=== PATIENT | male | born 1990 | race African-American/Black ===

== ENCOUNTER 2017-03-01 07:01 | Emergency (ER) | payer SELFPAY ==
[~2017-03-01] VITALS: Ht 182.9 cm; Wt 80.0 kg
[2017-03-01 07:09] VITALS: BP 135/80; PULSE 80; RESP 18; TEMP 98.9; O2SAT 97
[2017-03-01] MEDS ORDERED: SODIUM CHLORIDE 0.9% FLUSH 10 ML FLUSH IVF PRN (07:45)
[2017-03-01] MEDS ORDERED: ONDANSETRON HCL 4 MG/2 ML VIAL IVP ONE (07:45)
[2017-03-01] MEDS ORDERED: HYDROmorphone HCL PF 1 MG/ML VIAL IVS ONE (07:45)
[2017-03-01 09:00] VITALS: O2SAT 99
--- NOTE | 2017-03-01 09:10 | RADRPT ---
EXAM DATE/TIME: 03/01/2017 08:35 [facility] COMPARISON: No previous studies available for comparison. INDICATIONS : No known injury. Pain in shoulder started three weeks ago and this morning at work it got extremely w orse. MEDICAL HISTORY : Diabetes mellitus type II. SURGICAL HISTORY : None. ENCOUNTER: Initial ACUITY: 3 weeks PAIN SCORE: 10/10 LOCATION: Left Shoulder FINDINGS: Two view examination of the left shoulder demonstrates dislocation of the humerus inferiorly and ante riorly. The glenohumeral and acromioclavicular joints are maintained. Bony mineralization is normal . CONCLUSION: Anterior/inferior dislocation of the left shoulder. Robles Foss MD on March 01, 2017 at 9:08 Board Certified Radiologist. This report was verified electronically.
[2017-03-01] MEDS ORDERED: PROPOFOL 200 MG/20 ML AMP IV ONE (09:30)
[2017-03-01 09:35] VITALS: BP 155/80; PULSE 81; RESP 18; O2SAT 98
[2017-03-01 09:51] VITALS: O2SAT 100
[2017-03-01 09:56] VITALS: BP 135/78; PULSE 62; RESP 18; O2SAT 99
--- NOTE | 2017-03-01 10:18 | PD ---
HPI Chief Complaint: Pain: Acute or Chronic Time Seen by Provider: 07:39 Travel History International Travel<30 days: No Contact w/Intl Traveler<30days: No Traveled to known affect area: No History of Present Illness HPI The patient is 26. He complains of pain in the left shoulder for more than one week. The pain is constant severe. It is somewhat mitigated by maintaining the arm in a fully abducted position. 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 No complaints otherwise. PFSH Past Medical History Medical History: Denies Significant Hx Autoimmune Disease: No Cardiovascular Problems: No Diminished Hearing: No Gastrointestinal Disorders: Yes Genitourinary: No Headaches: Yes (HOSPITALIZED 1 YEAR AGO FOR TESTING) Musculoskeletal: No Neurologic: Yes Psychiatric: No Respiratory: No Immunizations Current: Yes Migraines: Yes (OFF/ON FOR 2 MONTHS) Past Surgical History Surgical History: No Previous Surgery Social History Alcohol Use: No Tobacco Use: No Substance Use: Yes (MARIJUANA) Allergies-Medications (Allergen,Severity, Reaction): Coded Allergies: amoxicillin (Unverified Allergy, Severe, HIVES, 03/01/17) penicillin G (Unverified Allergy, Severe, 03/01/17) Reported Meds & Prescriptions Reported Meds & Active Scripts Active No Active Prescriptions or Reported Medications Review of Systems General / Constitutional: No: Fever Cardiovascular: No: Chest Pain or Discomfort Musculoskeletal: Positive: Pain Physical Exam Narrative GENERAL: 26-year-old male pleasant well-nourished well-developed SKIN: Warm and dry. HEAD: Atraumatic. Normocephalic. RESPIRATORY: No accessory muscle use. Clear to auscultation. Breath sounds equal bilaterally. GASTROINTESTINAL: Abdomen soft, non-tender, nondistended. Hepatic and splenic margins not palpable. MUSCULOSKELETAL: There is a depression in the glenohumeral fossa on the left side. 2+ radial artery pulse bilaterally. NEUROLOGICAL: Awake and alert. No obvious cranial nerve deficits. Motor grossly within normal limits. Five out of 5 muscle strength in the arms and legs. Normal speech. Data Data Last Documented VS Vital Signs Date Time Temp Pulse Resp B/P (MAP) Pulse Ox O2 Delivery O2 Flow Rate FiO2 03/01/17 09:56 62 18 135/78 (97) 99 Nasal Cannula 4.00 03/01/17 07:09 98.9 Vital signs reviewed Orders Orders Iv Access Insert/Monitor (03/01/17 07:40) Oximetry (03/01/17 07:40) Ice/Cold Pack (03/01/17 07:40) Ecg Monitoring (03/01/17 07:40) Ondansetron Inj (Zofran Inj) (03/01/17 07:45) Sodium Chloride 0.9% Flush (Ns Flush) (03/01/17 07:45) Hydromorphone Pf Inj (Dilaudid Pf Inj) (03/01/17 07:45) ^ Sling (03/01/17 07:40) Shoulder, Limited(2vws) (03/01/17 ) Propofol 200 Mg/20 Ml Inj (Diprivan 200 (03/01/17 09:30) Shoulder, Limited(2vws) (03/01/17 ) Mandatory Outpatient Referral (03/01/17 10:18) Sling And Swathe (03/01/17 ) MDM Medical Decision Making Medical Screen Exam Complete: Yes Emergency Medical Condition: Yes Medical Record Reviewed: Yes Differential Diagnosis Fracture, dislocation, contusion, Hill-Sachs deformity Narrative Course Postreduction film shows good alignment. Last 24 hours Impressions Shoulder X-Ray 03/01/17 0000 Signed Impressions: Service Date/Time: Wednesday, March 01, 2017 08:35 - CONCLUSION: Anterior/inferior dislocation of the left shoulder. MD Meghan Ferraro. Follow-up with orthopedics. Procedures Procedure Narrative After the risks and benefits were discussed the following procedure was performed: MODERATE SEDATION: The patient was placed on a environmental monitoring technician and pulse oximetry. An ambu bag and suction was immediately available at bedside. The patient was monitored by the nurse. Oxygen saturation , heart rate and blood pressure were monitored. Procedural sedation was acheived using propofol. The patient was observed until awake and alert. Procedural Sedation time in attendance was 10 minutes. JOINT REDUCTION: Traction countertraction technique employed for successful reduction. 2+ radial artery pulse before and after. pt tolerated well. Diagnosis Primary Impression: Shoulder dislocation Qualified Codes: S43.005A - Unspecified dislocation of left shoulder joint, initial encounter Referrals: Jerrell Marcus MD 2 days Additional Instructions: PLEASE BE SURE TO FOLLOW UP WITH DR MARCUS OF ORTHOPEDICS. PLEASE CALL HIS OFFICE TO MAKE AN APPOINTMENT. PLEASE BE SURE TO LEAVE YOUR ARM IN THE SLING UNTIL THEN. Scripts No Active Prescriptions or Reported Meds Disposition: 01 DISCHARGE HOME Condition: Kirt Mccoy MD Mar 01, 2017 10:18
--- NOTE | 2017-03-01 10:24 | RADRPT ---
EXAM DATE/TIME: 03/01/2017 09:56 [facility] COMPARISON: No previous studies available for comparison. INDICATIONS : Post reduction left shoulder. MEDICAL HISTORY : Dislocation left shoulder SURGICAL HISTORY : None. ENCOUNTER: Subsequent ACUITY: 1 day PAIN SCORE: 4/10 LOCATION: Left shoulder. FINDINGS: Two view examination of the left shoulder demonstrates normal alignment. The glenohumeral and acromi oclavicular joints are maintained. Bony mineralization is normal. Small sclerotic focus in the humer al head likely bone island. CONCLUSION: Shoulder has been relocated to its anatomic position. Robles Foss MD on March 01, 2017 at 10:22 Board Certified Radiologist. This report was verified electronically.
[2017-03-01 10:44] VITALS: BP 125/70
== END 2017-03-01 10:45 | disposition home or self-care (01) ==
LOC: NEPE 07:01
DX: S43.005A Unspecified dislocation of left shoulder joint, initial encounter (principal); Y93.H2 Activity, gardening and landscaping; Z88.0 Allergy status to penicillin
CPT/HCPCS: 23650; 73030; 96374; 99152; 99285; J1170; J2405